=== PATIENT | male | born 1960 | race Caucasian/White ===

== ENCOUNTER 2021-12-19 12:08 | Emergency (ER) | payer OTHER ==
--- NOTE | 2021-12-19 13:25 | XR ---
EXAMINATION TYPE: XR knee complete LT DATE OF EXAM: 12/19/2021 CLINICAL HISTORY: History of prior meniscal tear presents with pain after fall injury TECHNIQUE: Three views of the left knee are obtained. COMPARISON: None. FINDINGS: There is no acute fracture/dislocation evident in left knee. Mild to moderate tricompartme nt joint space loss. There is spur from the anterior superior patellar distal quadriceps tendon attac hment. Increased density suprapatellar bursa suspicious for moderate to large size joint effusion. IMPRESSION: There is no acute fracture or dislocation in the left knee.
--- NOTE | 2021-12-19 14:15 | ED ---
Lower Extremity Injury HPI - General Chief Complaint: Extremity Injury, Lower Stated Complaint: knee pain Time Seen by Provider: 12/19/21 13:57 Source: patient, RN notes reviewed Mode of arrival: ambulatory Limitations: no limitations - History of Present Illness Initial Comments: This is a 61-year-old male presents emergency Department with chief complaint of left knee pain. Patient states he twisted his knee when he tripped over a suitcase. Patient's been having ongoing pain he did see his primary care physician provide him pain medication. He states he's had prior surgery of his left knee appears seizures no other injury states he noticed some clicking, popping, increase in pain with amputation. - Related Data Allergies Allergy/AdvReac Type Severity Reaction Status Date / Time No Known Allergies Allergy Verified 12/19/21 12:59 Review of Systems ROS Statement: Those systems with pertinent positive or pertinent negative responses have been documented in the HPI. ROS Other: All systems not noted in ROS Statement are negative. Past Medical History Past Medical History: Osteoarthritis (OA) Additional Past Medical History / Comment(s): neuropathy History of Any Multi-Drug Resistant Organisms: None Reported Past Surgical History: Hernia Repair, Orthopedic Surgery Additional Past Surgical History / Comment(s): yvette hips, right shouders, yvette knees Past Psychological History: No Psychological Hx Reported Smoking Status: Current every day smoker Past Alcohol Use History: None Reported Past Drug Use History: None Reported General Exam Limitations: no limitations General appearance: alert, in no apparent distress Head exam: Present: atraumatic, normocephalic, normal inspection Neck exam: Present: normal inspection, full ROM. Absent: tenderness, meningismus, lymphadenopathy Respiratory exam: Present: normal lung sounds bilaterally. Absent: respiratory distress, wheezes, rales, rhonchi, stridor Cardiovascular Exam: Present: regular rate, normal rhythm, normal heart sounds. Absent: systolic murmur, diastolic murmur, rubs, gallop, clicks Extremities exam: Present: other (Left knee there is mild pain with range of motion unable to fully flex his knee, neurovascularly intact, no tonsillar below, no definite laxity noted) Course Vital Signs 12/19/21 12:56 Temperature 97.3 F L Pulse Rate 73 Respiratory 18 Rate Blood Pressure 133/96 O2 Sat by Pulse 96 Oximetry Medical Decision Making - Medical Decision Making Patient has a left knee sprain concern for internal derangement. Patient speaks for MRI returned branch discussed. Disposition Clinical Impression: Left knee sprain Disposition: HOME SELF-CARE Condition: Stable Instructions (If sedation given, give patient instructions): Knee Sprain (ED) Additional Instructions: Please return to the emergency department for any worsening symptoms or any other concern Is patient prescribed a controlled substance at d/c from ED?: No Referrals: Pablo Madrid DO [Primary Care Provider] - 1-2 days Santos Baxter DO [Doctor of Osteopathic Medicine] - 1-2 days Time of Disposition: 14:14
[2021-12-19 14:53] VITALS: BP 152/78; PULSE 84; RESP 16; TEMP 98
== END 2021-12-19 14:52 | disposition home or self-care (01) ==
LOC: EC 12:08
DX: S83.92XA Sprain of unspecified site of left knee, initial encounter (principal); F17.200 Nicotine dependence, unspecified, uncomplicated; W01.0XXA Fall on same level from slipping, tripping and stumbling without subsequent striking against object, initial encounter
CPT/HCPCS: 99283

== ENCOUNTER → 2021-12-23 | Outpatient (CLI) | payer OTHER ==
--- NOTE | 2021-12-23 06:59 | MR ---
EXAMINATION TYPE: MR knee LT wo con DATE OF EXAM: 12/23/2021 COMPARISON: Left knee x-ray 4 days ago HISTORY: LT knee pain, locking, and swelling for one week. History of prior knee surgery. TECHNIQUE: Multiplanar, multisequence imaging of the left knee is performed without IV contrast. FINDINGS: MEDIAL MENISCUS: Fraying and abnormal signal posterior horn and central body could reflect product of prior partial meniscectomy and/or tearing, correlate clinically. LATERAL MENISCUS: Anterior and posterior horns are intact without tear. CRUCIATE LIGAMENTS: The anterior and posterior cruciate ligaments are intact and unremarkable. COLLATERAL LIGAMENTS: The medial collateral ligament and lateral collateral ligament complex are inta ct and unremarkable. EXTENSOR MECHANISM: Visualized quadriceps and patellar tendons are intact. EFFUSION: Moderate to large size suprapatellar joint effusion. POPLITEAL CYST: No popliteal/pierce cyst. TRICOMPARTMENT SPACES: Ruvw-[id number] tricompartment joint space loss and mild tricompartment spurr ing CARTILAGE: Tricompartment articular cartilage fairly well preserved. BONE MARROW SIGNAL: No focal abnormal marrow signal is appreciated. OTHER: No additional significant abnormality is appreciated. IMPRESSION: 1. Abnormal medial meniscus particularly the posterior horn and central body could reflect product of prior surgery or partial meniscectomy versus tear, correlate clinically. 2. Moderate to large-sized suprapatellar joint effusion. 3. Duhh-fn-fvnplyip tricompartmental degenerative changes greatest patellofemoral compartment as deta iled above.
== END | disposition home or self-care (01) ==
LOC: RADMRIMAIN 06:09
PROVIDERS: ATTEND Orthopaedic Surgery
DX: M25.462 Effusion, left knee (principal); M17.12 Unilateral primary osteoarthritis, left knee

== ENCOUNTER → 2024-04-30 | Outpatient (CLI) | payer OTHER ==
--- NOTE | 2024-04-30 17:53 | MR ---
EXAMINATION TYPE: MR Prostate wo/w con DATE OF EXAM: 04/30/2024 8:55 AM COMPARISON: None. CLINICAL INDICATION:Male, 64 years old with history of R97.20 ELEVATED PROSTATE SPECIFIC ANTIGEN [PSA ]; Elevated PSA TECHNIQUE: Multi-planar, multi-sequence imaging of the pelvis is performed prior to and following the uncomplicated administration of bolus intravenous gadolinium. CONTRAST: 9 Gadavist Interpretive Criteria: PI-RADS v2.1 SERUM PSA: 01/2024=3.63 02/2024=6.03 SURGICAL PATHOLOGY: No data available. FINDINGS: Prostatic dimensions: 4.2 x 4.5 x 3.4 cm. "Bullet" Volume:42.06 (PSA density=0.14 ng/mL/mL) CENTRAL GLAND (Central and Transition Zones/CZ+TZ): Limited exam due to hip arthroplasties. Multiple bilateral, heterogenous appearing hypertrophic stromal nodules, without suspicious lesion. M edian lobe hypertrophy with protrusion into the base of the bladder. (PI-RADS 2) PERIPHERAL ZONE (PZ): DWI sequences are nondiagnostic due to hip arthroplasties. No abnormal T2 signal identified within th e peripheral zone on T2-weighted sequences. SEMINAL VESICLES (SV): Symmetric and unremarkable. PERIPROSTATIC TISSUES: Unremarkable. LYMPH NODES: No enlarged pelvic lymph node. REMAINING PELVIS: Bladder wall is within normal limits given distention. No abnormal free or organized intrapelvic fluid collection. No pathologic bowel dilation or mural thickening. No hernia visualized OSSEOUS STRUCTURES: No suspicious osseous abnormality. IMPRESSION: 1. Limited exam due to bilateral hip arthroplasties. DWI sequences are nondiagnostic due to hip arthr oplasties. No specific features for high-risk prostate cancer. Maximum PI-RADS score: 2 given limitat ion of exam. 2. Mild BPH, estimated gland volume 42.06 mL. 3. No suspicious osseous lesion. No lymphadenopathy. No evidence of prostate adenocarcinoma involving the periprostatic tissues. 4. Mild circumferential wall thickening of the sigmoid colon with fat stranding, correlate for coliti s/diverticulitis.
== END ==
LOC: RADMRIMAIN 04-10 08:44
PROVIDERS: ATTEND Urology
DX: R97.20 Elevated prostate specific antigen [PSA] (principal); Z96.643 Presence of artificial hip joint, bilateral; N40.0 Benign prostatic hyperplasia without lower urinary tract symptoms; K31.89 Other diseases of stomach and duodenum
CPT/HCPCS: 72197; A9585

== ENCOUNTER 2024-10-22 10:14 | Emergency (ER) | payer OTHER ==
[2024-10-22] MEDS: SODIUM CHLORIDE 0.9% 1,000 ML IV STA ×2 (10:47→13:11)
--- NOTE | 2024-10-22 10:48 | ED ---
Abdominal Pain HPI - General Chief Complaint: Abdominal Pain Stated Complaint: left side abdominal pain Time Seen by Provider: 10/22/24 10:28 Source: patient, RN notes reviewed Mode of arrival: ambulatory Limitations: no limitations - History of Present Illness Initial Comments: This is a 64-year-old male who presents to the emergency department for abdo juan david pain. States that it started yesterday morning when he was laying down. Pain started in the left lower quadrant and now seems to be radiating across the lower abdomen. Denies any nausea/vomiting or changes in bowel/bladder habits. He did have surgery with Dr. Hagen at [facility] in [place], [place], 2 months ago for what they thought was diverticulitis but ended up being a hernia. He is concerned about a problem related to this. Denies any fevers/chills. MD Complaint: abdominal pain - Related Data Home Medications Medication Instructions Recorded Confirmed Gabapentin [Neurontin] 400 mg PO HS 10/22/24 10/22/24 HYDROcodone/APAP 5-325MG [Downing 1 tab PO TID PRN 10/22/24 10/22/24 5-325] Ibuprofen [Motrin] 600 mg PO TID PRN 10/22/24 10/22/24 lisinopriL [Zestril] 10 mg PO DAILY 10/22/24 10/22/24 Allergies Allergy/AdvReac Type Severity Reaction Status Date / Time No Known Allergies Allergy Verified 10/22/24 13:40 Review of Systems ROS Statement: Those systems with pertinent positive or pertinent negative responses have been documented in the HPI. ROS Other: All systems not noted in ROS Statement are negative. Past Medical History Past Medical History: Osteoarthritis (OA) Additional Past Medical History / Comment(s): neuropathy History of Any Multi-Drug Resistant Organisms: None Reported Past Surgical History: Hernia Repair, Orthopedic Surgery Additional Past Surgical History / Comment(s): yvette hips, right shouders, yvette knees, mass removed from abd Past Psychological History: No Psychological Hx Reported Smoking Status: Current every day smoker Past Alcohol Use History: None Reported Past Drug Use History: None Reported General Exam Limitations: no limitations General appearance: alert, in no apparent distress Head exam: Present: atraumatic, normocephalic, normal inspection Respiratory exam: Present: normal lung sounds bilaterally. Absent: respiratory distress, wheezes, rales, rhonchi, stridor Cardiovascular Exam: Present: regular rate, normal rhythm, normal heart sounds. Absent: systolic murmur, diastolic murmur, rubs, gallop, clicks GI/Abdominal exam: Present: soft, tenderness (Lower abdomen), normal bowel sounds. Absent: distended Neurological exam: Present: alert, oriented X3, CN II-XII intact Psychiatric exam: Present: normal affect, normal mood Skin exam: Present: warm, dry, intact, normal color. Absent: rash Course Vital Signs 10/22/24 10/22/24 10/22/24 10:24 12:00 13:40 Temperature 97.9 F 98.0 F Pulse Rate 89 82 74 Respiratory 20 18 16 Rate Blood Pressure 144/88 150/84 134/89 O2 Sat by Pulse 96 99 98 Oximetry Medical Decision Making - Medical Decision Making This is a 64 year old male who presents to the emergency department for abdom inal pain. Was pt. sent in by a medical professional or institution? @ -No Did you speak to anyone other than the patient for history? @ -No Did you review nursing and triage notes? @ -I disagree with the aspect of right lower quadrant pain, patient states that it is primarily left lower quadrant with radiation across. Were old charts reviewed? @ -No Differential Diagnosis? @ -Differential Abdominal Pain Men: Appendicitis, cholecystitis, diverticulosis, ischemic bowel, pancreatitis, hepatitis, UTI, gastroenteritis, AAA, incarcerated hernia, bowel obstruction, constipation, inflammatory bowel, hepatitis, peptic ulcer disease, splenic infarction, perforated viscus, testicular torsion, this is not meant to be an all-inclusive list EKG interpreted by me (3pts min.)? @ -Not obtained X-rays interpreted by me (1pt min.)? @ -Not obtained CT interpreted by me (1pt min.)? @ -CT scan of the abdomen and pelvis obtained. My interpretation identifies fat stranding in the mid to lower abdomen. U/S interpreted by me (1pt. min.)? @ -Not obtained What testing was considered but not performed? (CT, X-rays, U/S, labs)? Why? @ -None What meds were considered but not given? Why? @ -None Did you discuss the management of the patient with other professionals? @ -Yes, Dr. Corado, general surgery, who reviewed the patient's images and advised IV antibiotics. Also discussed that this is more likely an infected seroma and advised that the patient could remain here if he would like. Patient ultimately requested transfer to original surgical facility. Dr. Rogers, ED attending accepts the patient for ED to ED transfer at [facility]. Did you reconcile home meds? @ -No Was smoking cessation discussed for >3mins.? @ -No Was critical care preformed (if so, how long)? @ -No Were there social determinants of health that impacted care today? How? (Homelessness, low income, unemployed, alcoholism, drug addiction, transportation, low edu. Level, literacy, decrease access to med. care, custodial, rehab)? @ -No Was there de-escalation of care discussed even if they declined? (Discuss DNR or withdrawal of care, Hospice)? @ -No What co-morbidities impacted this encounter? (DM, HTN, Smoking, COPD, CAD, Cancer, CVA, Hep., AIDS, mental health diagnosis, sleep apnea, morbid obesity)? @ -None Was patient admitted / discharged? @ -Transferred. Lab work demonstrates leukocytosis with a white blood cell count of 16 and was otherwise unremarkable. Urinalysis negative for signs of infection. CT scan of the abdomen and pelvis demonstrates nonspecific moderate to severe ill-defined fluid and fat stranding near the level of surgical sutures around the umbilicus extending into the lower abdomen. This is thought to be inflammatory or infectious in nature. However, a bowel leak is not entirely excluded. Case discussed with Dr. Corado, general surgery. He reviewed the images and advised that this is more likely to be an infected seroma and the patient could remain here for the meantime if he would like. This was discussed with the patient and he requested transfer back to [facility] where the original surgery took place in the event additional intervention is requir ed. Blood culture obtained and he was started on Zosyn and Flagyl. Patient accepted as ED to ED transfer by Dr. Rogers at [facility] in [place]. Patient transferred via EMS in stable condition. Case discussed with ED attending Dr. Rivera. Undiagnosed new problem with uncertain prognosis? @ -None Drug Therapy requiring intensive monitoring for toxicity (Heparin, Nitro, Insulin, Cardizem)? @ -None Were any procedures done? @ -None Diagnosis/symptom? @ -Abdominal pain, postop infection Acute, or Chronic, or Acute on Chronic? @ -Acute Uncomplicated (without systemic symptoms) or Complicated (systemic symptoms)? @ -Complicated Side effects of treatment? @ -None Exacerbation, Progression, or Severe Exacerbation] @ -Not applicable Poses a threat to life or bodily function? @ -Yes, can lead to septic shock and - Lab Data Result diagrams: 10/22/24 10:43 10/22/24 10:43 Lab Results 10/22/24 10/22/24 10/22/24 Range/Units 10:43 10:43 10:43 WBC 16.0 H (3.8-10.6) k/uL RBC 4.86 (4.30-5.90) m/uL Hgb 15.4 (13.0-17.5) gm/dL Hct 45.6 (39.0-53.0) % MCV 93.9 (80.0-100.0) fL MCH 31.8 (25.0-35.0) pg MCHC 33.8 (31.0-37.0) g/dL RDW 13.1 (11.5-15.5) % Plt Count 342 (150-450) k/uL MPV 6.5 Neutrophils % 83 % Lymphocytes % 11 % Monocytes % 3 % Eosinophils % 2 % Basophils % 0 % Neutrophils # 13.3 H (1.3-7.7) k/uL Lymphocytes # 1.7 (1.0-4.8) k/uL Monocytes # 0.5 (0-1.0) k/uL Eosinophils # 0.3 (0-0.7) k/uL Basophils # 0.0 (0-0.2) k/uL Sodium 136 L (137-145) mmol/L Potassium 4.3 (3.5-5.1) mmol/L Chloride 99 (98-107) mmol/L Carbon Dioxide 24 (22-30) mmol/L Anion Gap 13 mmol/L BUN 18 (9-20) mg/dL Creatinine 0.94 (0.66-1.25) mg/dL Est GFR (CKD-EPI)AfAm >90 (>60 ml/min/1.73 sqM) Est GFR (CKD-EPI)NonAf 86 (>60 ml/min/1.73 sqM) Glucose 127 H (74-99) mg/dL Plasma Lactic Acid Harlan 1.5 (0.7-2.0) mmol/L Calcium 9.5 (8.4-10.2) mg/dL Total Bilirubin 2.0 H (0.2-1.3) mg/dL AST 25 (17-59) U/L ALT 25 (4-49) U/L Alkaline Phosphatase 74 (38-126) U/L Total Protein 7.1 (6.3-8.2) g/dL Albumin 4.1 (3.5-5.0) g/dL Amylase 53 (30-110) U/L Lipase 86 (23-300) U/L Urine Color Urine Appearance (Clear) Urine pH (5.0-8.0) Ur Specific Franklin (1.001-1.035) Urine Protein (Negative) Urine Glucose (UA) (Negative) Urine Ketones (Negative) Urine Blood (Negative) Urine Nitrite (Negative) Urine Bilirubin (Negative) Urine Urobilinogen (<2.0) mg/dL Ur Leukocyte Esterase (Negative) 10/22/24 Range/Units 10:48 WBC (3.8-10.6) k/uL RBC (4.30-5.90) m/uL Hgb (13.0-17.5) gm/dL Hct (39.0-53.0) % MCV (80.0-100.0) fL MCH (25.0-35.0) pg MCHC (31.0-37.0) g/dL RDW (11.5-15.5) % Plt Count (150-450) k/uL MPV Neutrophils % % Lymphocytes % % Monocytes % % Eosinophils % % Basophils % % Neutrophils # (1.3-7.7) k/uL Lymphocytes # (1.0-4.8) k/uL Monocytes # (0-1.0) k/uL Eosinophils # (0-0.7) k/uL Basophils # (0-0.2) k/uL Sodium (137-145) mmol/L Potassium (3.5-5.1) mmol/L Chloride (98-107) mmol/L Carbon Dioxide (22-30) mmol/L Anion Gap mmol/L BUN (9-20) mg/dL Creatinine (0.66-1.25) mg/dL Est GFR (CKD-EPI)AfAm (>60 ml/min/1.73 sqM) Est GFR (CKD-EPI)NonAf (>60 ml/min/1.73 sqM) Glucose (74-99) mg/dL Plasma Lactic Acid Harlan (0.7-2.0) mmol/L Calcium (8.4-10.2) mg/dL Total Bilirubin (0.2-1.3) mg/dL AST (17-59) U/L ALT (4-49) U/L Alkaline Phosphatase (38-126) U/L Total Protein (6.3-8.2) g/dL Albumin (3.5-5.0) g/dL Amylase (30-110) U/L Lipase (23-300) U/L Urine Color Yellow Urine Appearance Clear (Clear) Urine pH 6.5 (5.0-8.0) Ur Specific Franklin 1.023 (1.001-1.035) Urine Protein Trace H (Negative) Urine Glucose (UA) Negative (Negative) Urine Ketones Negative (Negative) Urine Blood Negative (Negative) Urine Nitrite Negative (Negative) Urine Bilirubin Negative (Negative) Urine Urobilinogen <2.0 (<2.0) mg/dL Ur Leukocyte Esterase Negative (Negative) - Radiology Data Radiology results: report reviewed, image reviewed Disposition Clinical Impression: Abdominal pain, Postoperative infection Disposition: OTHER INSTITUTION NOT DEFINED Referrals: Israel Rodriguez MD [Primary Care Provider] - 1-2 days - Out of Hospital Transfer - Req. Specs Out of Hospital Transfer - Requested Specifics: Other Emergency Center ([facility])
[2024-10-22 10:57] LABS: Basophils % (A) 0 %; Eosinophils # (A) 0.3 k/uL (0-0.7); Eosinophils % (A) 2 %; HCT 45.6 % (39.0-53.0); HGB 15.4 gm/dL (13.0-17.5); Lymphocytes # (A) 1.7 k/uL (1.0-4.8); Lymphocytes % (A) 11 %; MCH 31.8 pg (25.0-35.0); MCHC 33.8 g/dL (31.0-37.0); MCV 93.9 fL (80.0-100.0); Mean Platelet Volume 6.5; Monocytes # (A) 0.5 k/uL (0-1.0); Monocytes % (A) 3 %; Neutrophils # (A) 13.3 k/uL (1.3-7.7); Neutrophils % (A) 83 %; Platelet Count 342 k/uL (150-450); RBC 4.86 m/uL (4.30-5.90); RDW 13.1 % (11.5-15.5)
[2024-10-22 11:04] LABS: Appearance,Urine Clear (Clear); Bilirubin,Urine Negative (Negative); Blood,Urine Negative (Negative); Color,Urine Yellow; Glucose,Urine (UA) Negative (Negative); Ketones,Urine Negative (Negative); Leukocyte Esterase,Urine Negative (Negative); Nitrite,Urine Negative (Negative); PH, Urine 6.5 (5.0-8.0); Protein,Urine Trace (Negative); Specific Gravity,Urine 1.023 (1.001-1.035); Urobilinogen,Urine <2.0 mg/dL (<2.0)
[2024-10-22 11:18] LABS: ALT 25 U/L (4-49); AST 25 U/L (17-59); African American GFR (CKD) >90 (>60 ml/min/1.73 sqM); Albumin 4.1 g/dL (3.5-5.0); Alkaline Phosphatase 74 U/L (38-126); Amylase 53 U/L (30-110); Anion Gap 13 mmol/L; Blood Urea Nitrogen 18 mg/dL (9-20); Calcium 9.5 mg/dL (8.4-10.2); Carbon Dioxide 24 mmol/L (22-30); Chloride 99 mmol/L (98-107); Glucose 127 mg/dL (74-99); Lipase 86 U/L (23-300); Non-African American GFR(CKD) 86 (>60 ml/min/1.73 sqM); Potassium 4.3 mmol/L (3.5-5.1); Sodium 136 mmol/L (137-145); Total Protein 7.1 g/dL (6.3-8.2)
--- NOTE | 2024-10-22 12:33 | CT ---
EXAMINATION TYPE: CT abdomen pelvis w con DATE OF EXAM: 10/22/2024 COMPARISON: None. CLINICAL INDICATION: Male, 64 years old with history of LLQ abdominal pain; PHH, LLQ PAIN, SB RESECTI ON H/O HERNIA REPAIR AND SEPSIS TECHNIQUE: Performed without Oral Contrast and with IV Contrast, patient injected with 100 mL of Isovue 300. CT DLP: 1417.1 mGycm Automated exposure control for dose reduction was used. FINDINGS: LUNG BASES: No significant abnormality is appreciated. LIVER/GB: Liver is heterogeneously hypodense suggesting diffuse fatty infiltrative hepatocellular dis ease. PANCREAS: No significant abnormality is seen. SPLEEN: No significant abnormality is seen. ADRENALS: No significant abnormality is seen. KIDNEYS: No significant abnormality is seen. FREE AIR: No free air is visualized. RETROPERITONEAL ADENOPATHY: None visualized REPRODUCTIVE ORGANS: Suboptimal evaluation. URINARY BLADDER: No significant abnormality is seen. PELVIC ADENOPATHY: None visualized. OSSEOUS STRUCTURES: Metallic hardware from bilateral hip surgery causes streak artifact limiting cheryl luation of pelvic structures. Multilevel vacuum disc phenomenon and disc space narrowing at L2-L3 and L3-L4 levels. Slight scoliotic curvature is seen. BOWEL: Surgical sutures from bowel surgery seen in the midline near level of umbilicus. There is mod erate to severe ill-defined fluid and fat stranding near this level extending into the left abdomen a nd extending into the lower abdomen. Additional surgical sutures at level of sigmoid colon in the pel vis. No abnormal small or large bowel dilatation. OTHER: Vertical oriented scar in the midline of the anterior abdominal wall from the umbilicus extend ing inferiorly is noted. There is moderate-sized fat-containing left inguinal hernia. IMPRESSION: NONSPECIFIC FAT STRANDING THROUGHOUT THE MID TO LOWER ABDOMEN CENTRALLY EXTENDING INTO THE LEFT ABDOM EN. POSSIBLE INFLAMMATORY AND/OR INFECTIOUS PROCESS. IF BOWEL SURGERY IS RECENT A LEAK IS NOT ENTIREL Y EXCLUDED. [facility], , 10/22/2024 12:30 PM
[2024-10-22] MEDS: PIPERACILLIN-TAZOBACTAM 3.375 GM in SODIUM CHLORIDE 0.9% 100 ML IVPB STA (13:06)
[2024-10-22] MEDS: MORPHINE SULFATE 4 MG/ML SYRINGE IVP STA (13:28)
[2024-10-22] MEDS: metroNIDAZOLE-NS PMX 500 MG in SALINE 1 100ML.BAG IVPB STA (13:34)
[2024-10-22 13:45] VITALS: BP 134/89; PULSE 74; RESP 16; TEMP 98
== END 2024-10-22 13:45 | disposition other institution (70) ==
LOC: EC 10:14
DX: T81.40XA Infection following a procedure, unspecified, initial encounter (principal); R10.32 Left lower quadrant pain; F17.200 Nicotine dependence, unspecified, uncomplicated
CPT/HCPCS: 36415; 80053; 82150; 83605; 83690; 85025; 81003; 87040; 74177; 99285; 96365; 96375; 96361 ×2; J2543; J2270; Q9967